=== PATIENT | female | born 1980 | race Caucasian/White ===

== ENCOUNTER 2022-06-13 13:01 | Outpatient (CLI) | payer BC, MEDICAID, SELFPAY ==
--- NOTE | 2022-06-13 | CRLHL7_ITS ---
For Patients: As a result of the Century Cures Act, medical imaging exams and procedure reports are released immediately into your electronic medical record. You may view this report before your referring provider. If you have questions, please contact your health care provider. INDICATION: Evaluate anatomy. COMPARISON: none TECHNIQUE: Real time skelton scale imaging of the fetus was performed as well as color Doppler analysis of the umbilical vessels. FINDINGS: Sonographic imaging demonstrates a single living intrauterine gestation. Fetus demonstrates a regular cardiac rate of 157 beats per minute. Fetus has a transverse position, head maternal right. The placenta lies posterior without evidence of placenta previa. The edge of the placenta is located more than 5 cm from the internal cervical os. Amniotic fluid volume appears normal. Single deepest vertical pocket: 4.7 cm. The composite ultrasound gestational age is calculated at 21 weeks 4 days with an estimated sonographic due date of 10/20/2022. The estimated weight is 456 grams which lies at the 97th %. The following biometric measurements were obtained: Biparietal diameter: 4.9 cm/20 weeks 6 days 63rd% Head circumference: 18.6 cm/21 weeks 0 days 59th% Abdominal circumference: 17.8 cm/22 weeks 5 days 95th% Femur length: 3.5 cm/21 weeks 1 day 62nd% The HC/AC ratio measures: 1.04 range (1.06-1.24) On anatomic survey, there is a normal appearance of the cerebral ventricles, cavum septi pellucidi, cisterna magna and cerebellum. The nose, lips, and facial profile appear normal. The cervical, thoracic and lumbar spine are well visualized and appear normal. There is a normal four-chamber heart view and the left and right ventricular outflow tracts appear normal. The diaphragm and stomach appear normal. The kidneys and bladder also appear normal. There is a normal three-vessel cord and cord insertion site. The four extremities appear normal. IMPRESSION: Sonographic age is 1 week ahead of the clinical age. No intrinsic abnormalities noted on anatomic survey. Dictated by Jose Barber MD @ 06/14/2022 9:06:45 AM (Electronically Signed)
== END 2022-06-13 13:02 | disposition home or self-care (01) ==
LOC: US 13:01
PROVIDERS: Visit Provider Advanced Practice Midwife
DX: Z34.92 Encounter for supervision of normal pregnancy, unspecified, second trimester (principal); Z3A.20 20 weeks gestation of pregnancy
CPT/HCPCS: 76805

== ENCOUNTER 2022-06-25 09:13 | Outpatient (CLI) | payer BC, MEDICAID, SELFPAY ==
[2022-06-25 09:32] VITALS: BP 101/58; PULSE 84
[2022-06-25 09:33] VITALS: RESP 18; TEMP 37.1
[2022-06-25 09:54] LABS: Appearance Urine Clear (Clear); Bilirubin Urine Negative (Negative); Blood Urine 3+ (Negative); Color Urine Red (Yellow); Glucose Urine Negative (Negative); Ketones Urine Negative (Negative); Leukocyte Esterase Urine Trace (Negative); Nitrite Urine Negative (Negative); Protein Urine 1+ (Negative); Specific Gravity Urine 1.015 (1.000-1.030); Urobilinogen Urine 0.2 (0.2-1.0); pH Urine 8.5 (5.0-8.5)
[2022-06-25 10:14] LABS: Bacteria Urine Few; RBC Urine >100 (0-2); Squamous Epithelial Cell Urine Few (None-Few)
--- NOTE | 2022-06-25 10:35 | CRLHL7_ITS ---
For Patients: As a result of the Century Cures Act, medical imaging exams and procedure reports are released immediately into your electronic medical record. You may view this report before your referring provider. If you have questions, please contact your health care provider. CLINICAL HISTORY: Blood in the urine COMPARISON: none TECHNIQUE: Mitchell scale and color Doppler images were acquired of the kidneys and urinary bladder. FINDINGS: Right hydronephrosis is noted along with right proximal hydroureter. There is a masslike filling defect within the right proximal ureter measuring 2.2 x 1.2 x 1.7 cm. Normal left kidney. The right kidney measures 12.7cm in length and the left kidney measures 14.6cm in length. The renal cortex appears of normal thickness. There is a masslike area within the bladder measuring 1.6 x 1.6 x 3.5 cm. Color Doppler images reveal a normal appearance of the right ureteral jet. The left ureteral jet is visualized. Bladder volume 35 cc. IMPRESSION: Right hydroureteronephrosis with masslike structure within the right proximal ureter measuring 2.2 x 1.2 x 1.7 cm, possibly a blood clot. Additional masslike area in the bladder measuring 1.6 x 1.6 x 3.5 cm, also possibly representing a blood clot. Urology consultation recommended for consideration of cystoscopy, right ureteroscopy and right renal stent placement. Dictated by Jose Barber MD @ 06/25/2022 11:50:17 AM (Electronically Signed)
--- NOTE | 2022-06-25 16:03 | P.OBLDTN_ITS ---
OB - Triage/Final Diagnosis Visit Information Date Seen: 06/25/22 Narrative: The patient is a 41 year old 7 para 5 at 22.2 weeks gestation by LMP, who presents with right red blood in her urine. States that this morning she she urinated that the urine appeared to be pink or red tinged. Denies bleeding on her pad or when she wipes at any time. Denies pain, difficulty urinating or painful urination. She did have some slight back pain last night but nothing since. States that she has been drinking lots of water. Denies nausea, diarrhea, fever, body aches, headache, vision changes, abdominal trauma or falls. Endorses good movement and denies cramping, contractions, or abdomen tightening. On examination there was no visual vaginal bleeding and none on a Q-tip inserted vaginally. No abdominal tenderness on palpation. U/S showed mass vs blood clot present in the ureter and bladder. Reviewed with Dr. Martínez Nielsen and referral placed for urology. Patient educated to report to the hospital or provider with increased bleeding, lightheaded or dizziness, decreased urine output, pain, or other concerning changes. Reason for evaluation: other (blood in urine) Evaluation Laboratory results: Laboratory Tests 06/25/22 Range/Units 09:45 Urine Color Red A (Yellow) Urine Appearance Clear (Clear) Urine pH 8.5 (5.0-8.5) Ur Specific [place] 1.015 (1.000-1.030) Urine Protein 1+ A (Negative) Urine Glucose (UA) Negative (Negative) Urine Ketones Negative (Negative) Urine Blood 3+ A (Negative) Urine Nitrite Negative (Negative) Urine Bilirubin Negative (Negative) Urine Urobilinogen 0.2 (0.2-1.0) Ur Leukocyte Esterase Trace A (Negative) Urine RBC >100 A (0-2) Urine WBC 2-5 (0-5) Ur Squamous Epith Cells Few (None-Few) Urine Bacteria Few A (None) Vital signs: Vital Signs - 24 hr 06/25/22 09:33 06/25/22 09:32 Temperature 98.7 F Pulse Rate 84 Respiratory Rate 18 Blood Pressure 101/58 L Fetus (Single) Heart Rate Baseline: 150 (per doppler)
== END 2022-06-25 12:18 | disposition home or self-care (01) ==
LOC: OB OUT 09:14 → OB 09:16
PROVIDERS: Visit Provider Advanced Practice Midwife
DX: R31.9 Hematuria, unspecified (principal); N13.30 Unspecified hydronephrosis
CPT/HCPCS: 76770; 81003; 81015; 87086; 99213

== ENCOUNTER 2022-08-06 15:57 | Outpatient (CLI) | payer BC, MEDICAID, SELFPAY ==
[2022-08-08 09:03] LABS: Rapid Plasma Reagin (RPR) Non Reactive (Non Reactive)
== END 2022-08-06 15:58 | disposition home or self-care (01) ==
PROVIDERS: Visit Provider Advanced Practice Midwife
DX: Z34.80 Encounter for supervision of other normal pregnancy, unspecified trimester (principal)
CPT/HCPCS: 86592

== ENCOUNTER 2022-10-01 09:45 | Outpatient (CLI) | payer BC, MEDICAID, SELFPAY ==
[2022-10-02 12:53] LABS: Strep B DNA Probe NEGATIVE (Negative)
[2022-10-02 12:54] LABS: Strep B Pen/Amox Allergy No
== END 2022-10-01 09:46 | disposition home or self-care (01) ==
PROVIDERS: Visit Provider Advanced Practice Midwife
DX: O09.523 Supervision of elderly multigravida, third trimester (principal); Z3A.36 36 weeks gestation of pregnancy
CPT/HCPCS: 87081; 87653

== ENCOUNTER 2022-10-24 09:15 | Inpatient (IN) | payer BC, MEDICAID, SELFPAY ==
[2022-10-24] VITALS (12 sets, daily range): BP systolic 102–131; BP diastolic 64–82; PULSE 74–113; RESP 16; TEMP 36.6–37; O2SAT 96–99; BMI 25.0
--- NOTE | 2022-10-24 09:22 | P.LDBA_ITS ---
Subjective History of Present Illness Time Seen by Provider: : Date Seen: 10/24/22 Narrative: Arlene is a 41 year old at 39 4/7 weeks gestation that was admitted to the Labor & Delivery on 10/24/22 for active labor. Has previously had ITN and unmedicated births. Desires unmedicated/waterbirth at this time. Pt stated she tends to have fast labors. Contractions started at about 3am per pt, noted to be getting more intense. Denies SROM at this time. Vik at bedside for support. OB Problem List H&P done 10/18/22 by Tea Ramirez CNM Vik. Has 5 Kids ages 6-16. 1. AMA over 40 years old Genetic screening-declines Level 2 US- declining at this time, plans to scheduled FAS as routine Growth US at 32 and 36 wks-will likely decline Weekly NST ay 36wks- will do weekly starting at 37 weeks Delivery at 39-40 wks-may decline 2. Migraines w/o aura 3. Needs pap PP 4. Declines dating US 5. Rubella NON immune, NEEDS vaccine PP 6. EFW 97% at 20 week scan OB - Problem Based A/P Additional Plan (1) : Status: Acute (2) Active labor at term: Status: Acute (3) Advanced maternal age (AMA), 40 years or greater: Status: Acute (4) Grand multipara in labor: Status: Acute (5) History of macrosomia in in prior , currently in third trimester: Status: Acute Plan Assessment:?? 41 yo at 39w 4d gestation?? Patient is coping well with challenges of labor.?? Labor type: Spontaneous, Active labor? Category 1 FHR pattern.?? complicated by: AMA History of Macrosomia in prior infants Grand Multipara Plan:?? Routine intrapartum cares as ordered.? CBC, and Type & Screen No IV needed at this time Intermittent auscultation? Patient encouraged to ambulate and change positions to promote physiologic labor and ?? Planning waterbirth,candidate for comfort measures of choice, per patient pr eference Expectant management of third stage of labor Anticipate progress to . ? Delivery/Labor/Induction Plan Plan: expectant management OB Exam Physical Exam Vital signs: Pulse BP 82 131/78 10/24/22 09:18 10/24/22 09:18 Narrative: Objective: VSS, afebrile General Appearance: Calm, cooperative. No acute distress. ? Psychiatric Exam: Alert and oriented, appropriate affect Respiratory: CTA, symmetrical chest movement Cardio: Regular Rate & Rhythm Abdomen: Gravid Ctx: ?Q 3-5 min apart. ?Moderate FHTs: ?Baseline: 135 Variability: Moderate ? Accels: absent ? ?Decels: ?absent SVE: 5-6/90%/-1 Membranes: Intact ? ?
[2022-10-24] MEDS: OXYTOCIN 10 UNIT/ML INJ IM (09:59)
[2022-10-24] MEDS: IBUPROFEN 600 MG TABLET PO ×2 (10:30→18:38)
--- NOTE | 2022-10-24 10:44 | PM.OBPRCVD ---
Procedure Delivery date: 10/24/22 Procedure Done: Global Procedure Details: Arlene a 41 year-old G7 now ?P6 admitted on 10/24/22 at 39 Weeks, 4 Days gestation for contractions. Cervical exam on admission was 5 cm/90 % effaced/-1 station with membranes intact in vertex presentation.? SROM assumed with delivery in waterbirth tub. Labor Analgesia:? none Pitocin:? No, PP only for AMTSL Labor onset:? 0800 Complete: assumed with pushin, confirmed at 0950 Pushing:? 0940 heart tones during second stage were: Reassuring by doppler, possible audible early decels Arlene arrived in Labor & Delivery with contractions 3 minutes apart. She labored for a short time in bed and then moved to the waterbirth tub, where she labored for a short time before reporting pelvic pressure. Upon arrival to room, Arlene was noted to be bearing down with contractions. After a few contractions with pushing, Arlene asked to have her water broken, but agreeable to cervical check first. She was found to be complete and +2. After a couple more contractions with strong, well controlled pushes, baby Michele was born in semi-fowlers postition in the tub. At 0951 a viable male delivered in vertex OA presentation over intact perineum via spontaneous vaginal?delivery. ? was placed on maternal abdomen. Shortly after large gush of blood noted, cord noted to be still mildly pulsing, bleeding noted to have stopped. Second medium sized gush of bleeding noted, decision made to clamp and cut cord r/t concerns of higher risk of PP hemorrhage, IM Pitocin already given at this point.?Baby initially had good tone and cry with stimulation, but his color did not change after several minutes. Cord was clamped and cut by dad after a 5+ minute delay (decision to clamp & cut r/t increase in bleeding). Baby was brought to prewarmed, open warmer. Baby further assessed by RN's and Dr. Kevin and given O2 by CPAP. See their notes for further information. After cord clamped and cut, mom assisted out of the tub and into the bed. Third large gush of blood noted while exiting tub. Hemorrhage cart called for. Placenta delivered in bed with a large clot. Second smaller clot noted with crede by RN, fundus noted to be firm at that time and bleeding stopped. No other meds given at this time. Baby stable and on mom's chest before provider leaving the room.? weight 9lbs 6oz. ? 7 at 1 minute and 7 at 5 minutes. ?Shoulder dystocia: no. ?Nuchal cord: no. Placenta delivered spontaneously and complete at 1002 with a 3 vessel cord. Mother and were stable after?delivery. Lacerations:? 1st degree, not bleeding, not repaired Blood loss: 500 mL. Blood loss measurement type:? EBL Sponge and needles counts are correct. Events: AMA Intrapartal Events: None Delivery monitor: external FHT (Doppler) Route of delivery: Laceration description: Cervical - 1st Degree Estimated blood loss (mL): 500 Anesthesia type: None Disposition: floor [place] Infant Gender: Male presentation: vertex Placental Delivery Description: Spontaneous Cord Description: 3 Vessels OB Vag Delivery Procedures Additional Procedures ECV: No Cook Catheter Insertion: No NST: No D&C: No Laceration Repair: No Tubal Ligation : No Other: No
[2022-10-24] MEDS: LANOLIN CREAM 1 APPLIC TOPICAL (16:46)
[2022-10-24] MEDS: DOCUSATE SODIUM 100 MG CAPSULE PO ×2 (18:38→22:40)
[2022-10-24 19:56] LABS: SARS PCR* Negative SARS-CoV-2 (Negative)
[2022-10-25 00:30] VITALS: BP 100/65; PULSE 90; RESP 16; TEMP 36.7; O2SAT 99
[2022-10-25] MEDS: IBUPROFEN 600 MG TABLET PO (00:53)
[2022-10-25 04:26] VITALS: BP 96/58; PULSE 88; RESP 16; TEMP 36.5; O2SAT 96
--- NOTE | 2022-10-25 09:00 | P.DS_ITS ---
DS: Providers Provider Date Seen: 10/25/22 Date of admission: 10/24/22 09:15 Primary care physician: Not a Local Provider Admitting Clinician: Mari Tolentino CNM Attending Physician on discharge: Anny Ferreira CNM and SUAD Kirkland Date of Discharge: 10/25/22 DS: Diagnosis Discharge Diagnosis (1) care and examination immediately after delivery: Status: Acute (2) Lactating mother: Status: Acute Exam Const: Vital Signs, click to edit/add: Vital Signs - 24 hr 10/24/22 09:18 10/24/22 09:26 10/24/22 10:04 Temperature Pulse Rate 82 81 Pulse Rate [Pulse Oximeter] Respiratory Rate Blood Pressure 131/78 110/67 Blood Pressure [Le ft Arm] Pulse Oximetry 99 Oxygen Delivery [facility] 10/24/22 10:34 10/24/22 10:49 10/24/22 11:04 Temperature Pulse Rate 82 74 80 Pulse Rate [Pulse Oximeter] Respiratory Rate Blood Pressure 122/67 118/67 125/71 Blood Pressure [Le ft Arm] Pulse Oximetry Oxygen Delivery [facility] 10/24/22 11:19 10/24/22 11:34 10/24/22 11:49 Temperature Pulse Rate 101 H 87 77 Pulse Rate [Pulse Oximeter] Respiratory Rate Blood Pressure 118/75 113/70 102/64 Blood Pressure [Le ft Arm] Pulse Oximetry Oxygen Delivery [facility] 10/24/22 12:04 10/24/22 09:18 10/24/22 12:04 Temperature 98.4 F 98.1 F Pulse Rate 113 H Pulse Rate [Pulse Oximeter] Respiratory Rate 16 16 Blood Pressure 112/70 Blood Pressure [Le ft Arm] Pulse Oximetry Oxygen Delivery [facility] 10/24/22 10:04 10/24/22 10:34 10/24/22 10:49 Temperature 98.6 F Pulse Rate Pulse Rate [Pulse Oximeter] Respiratory Rate 16 16 16 Blood Pressure Blood Pressure [Le ft Arm] Pulse Oximetry Oxygen Delivery [facility] 10/24/22 11:04 10/24/22 11:19 10/24/22 11:34 Temperature Pulse Rate Pulse Rate [Pulse Oximeter] Respiratory Rate 16 16 16 Blood Pressure Blood Pressure [Le ft Arm] Pulse Oximetry Oxygen Delivery [facility] 10/24/22 11:49 10/24/22 15:40 10/24/22 20:00 Temperature 97.8 F 97.8 F Pulse Rate Pulse Rate [Pulse Oximeter] 92 88 Respiratory Rate 16 16 16 Blood Pressure Blood Pressure [Le ft Arm] 105/71 129/82 Pulse Oximetry 96 98 Oxygen Delivery Me thod Room Air Room Air 10/25/22 00:30 10/25/22 04:26 Temperature 98.0 F 97.7 F Pulse Rate Pulse Rate [Pulse Oximeter] 90 88 Respiratory Rate 16 16 Blood Pressure Blood Pressure [Le ft Arm] 100/65 96/58 L Pulse Oximetry 99 96 Oxygen Delivery Me thod Room Air Room Air Documenting provider has reviewed patient's vital signs: yes Common normals: no apparent distress, oriented x3, healthy appearing and alert HENMT: Common normals: normocephalic Head and scalp: normocephalic Eye: Common normals: PERRL Pupil: PERRL Neck & C-Spine: Common normals: full ROM and supple Chest: Common normals: inspection of chest normal Resp: Common normals: normal respiratory effort and clear to auscultation bilaterally Auscultation: clear to auscultation bilaterally Cardio: Common normals: regular rate and regular rhythm Rate: regular rate Rhythm: regular rhythm GI: Common normals: soft to palpation Inspection: normal to inspection Palpation: soft : Common normals: no CVA tenderness Bladder/kidney exam: no CVA tenderness OB/external & speculum: Yes perineal/vaginal laceration Uterus: U/U Lochia: small Back & Pelvis: Common normals: no CVA tenderness and thoracic and lumbar spine normal to inspection Extremity: Common normals: normal to inspection and full ROM Neuro: Common normals: oriented x3 Sensorium/orientation: alert Speech: speech normal Psych: Common normals: mental status grossly normal, thought process normal, speech normal and activity/motor behavior normal Speech: normal speech Thought process: normal thought process Skin: Common normals: no rashes or lesions noted General skin exam: no rashes or lesions noted OB - DS: Summary Hospital Course Hospital Course: The patient is a 41 year old G 7 P 6 at 39 4/7 weeks gestation that was admitted to the Center on 10/24/22 for labor. She had an uncomplicated vaginal waterbirth delivery. She delivered a viable male . The patient feels well.? The pain is well controlled with current medications.? She has no new complaints.? Urinary output is adequate and she is voiding without difficulty.? Has a good appetite, is tolerating a general diet, is passing flatus, and has had a bowel movement.? Has small amount of rubra lochia.? She is ambulating well. She is and reports it is going well.?We did not discuss contraception. Peripartum Data delivery method: Vaginal Laceration description: Perineal - 1st Degree (Not repaired) complications: none Gender: Male Infant Discharge Plan: Home Status at Discharge Functional status at discharge: independent ambulation Overall status at discharge: patient is progressing back to baseline Time Spent with Patient Time attestation: Total time spent providing and/or coordinating discharge services: Time spent: Less than 30 minutes Discharge Plan Discharge Disposition: Home, Self-Care Date of Admission: 10/24/22 09:15 Attending Provider on Discharge: Anny Ferreira Primary Care Provider: Provider,Not a Local Condition: Stable Anticipated Discharge Date/Time: 10/25/22 12:00 Discharge Medications: New acetaminophen 500 mg Tablet 1,000 mg PO Q6H PRNQty: 0 0RF docusate sodium 100 mg Capsule 100 mg PO BID PRNQty: 30 0RF ibuprofen 600 mg Tablet 600 mg PO Q6H PRNQty: 0 0RF Continued prenat.vits,ramone,[id number] Tablet 1 tab PO QDAY Discharge Orders: Discharge Order (Routine); Ordered 10/25/22 Ordered By: Anny Ferreira Patient Education: OB Vaginal/Breast Feeding Additional Instructions: Discharge instructions were reviewed with the patient including signs and symptoms of infection and home going medications Nothing vaginally for 6 weeks: no tampons or intercourse Off Work or School for 8 weeks 2-week visit: discuss infant feeding concerns, review control options and screen for anxiety/depression. 6-week visit for an annual exam. consultation services are available to all mothers and babies for the first year after delivery.? To make an appointment, please call [phone]. Activity Level: Activity as Tolerated Discharge Diet: Regular Follow Up Appointments: [facility] [Provider Group] (2 weeks and 6 weeks) Forms: CDP Info Instructions
[2022-10-25] MEDS: DOCUSATE SODIUM 100 MG CAPSULE PO (09:50)
[2022-10-25 09:51] VITALS: BP 99/62; PULSE 88; RESP 16; TEMP 36.9; O2SAT 97
== END 2022-10-25 12:45 | disposition home or self-care (01) | DRG 560 ==
LOC: OB 09:15 → OB OUT 09:40 → OB 10-25 07:44
PROVIDERS: Advanced Practice Midwife; Admitting Provider Advanced Practice Midwife; Visit Provider Advanced Practice Midwife
DX: O70.0 First degree perineal laceration during delivery (principal); Z37.0 Single live birth; Z3A.39 39 weeks gestation of pregnancy
CPT/HCPCS: 87635; A9270; J2590